=== PATIENT | female | born 1965 | race Caucasian/White ===

== ENCOUNTER 2025-05-14 17:22 | Emergency (ER) | payer OTHER ==
[~2025-05-14] VITALS: Ht 162.6 cm; Wt 46.7 kg
[2025-05-14 17:29] VITALS: BP 137/66
[2025-05-14] MEDS ORDERED: PREG50CA PO (18:08)
[2025-05-14 18:58] VITALS: BP 129/61; O2SAT 97
== END 2025-05-14 19:04 | disposition home or self-care (01) ==
LOC: ER 17:27
DX: R22.2 Localized swelling, mass and lump, trunk (principal); Z59.00 Homelessness unspecified; Z87.39 Personal history of other diseases of the musculoskeletal system and connective tissue; Z90.11 Acquired absence of right breast and nipple
CPT/HCPCS: A4606; A4663